=== PATIENT | male | born 1965 | race Caucasian/White ===

== ENCOUNTER 2022-02-19 19:11 | Emergency (ER) | payer SELFPAY ==
[~2022-02-19] VITALS: Ht 175.3 cm; Wt 64.9 kg
[2022-02-20] MEDS ORDERED: HYDROCODONE/APAP 5-325MG TABLET PO ONE (01:30)
[2022-02-20] MEDS ORDERED: TDAP DIPH,PERTUSS,TET VAC/PF 0.5 ML DISP.SYRIN IM ONE ×2 (01:30→01:51)
[2022-02-20] MEDS ORDERED: HYDROCODONE/APAP 5-325MG TABLET ONE (01:51)
[2022-02-20] MEDS ORDERED: LIDOCAINE HCL 1% 20 ML VIAL ONE (02:24)
--- NOTE | 2022-02-20 02:27 | NUR ---
Dr Sanon verbally ordered lidocaine 1%
[2022-02-20] MEDS ORDERED: LIDOCAINE 2% (GLYDO= UROJET) 10 ML JELLY MM ONE (02:30)
[2022-02-20] MEDS ORDERED: DOXY100C5 PO (03:12)
[2022-02-20] MEDS ORDERED: NAPR-1164 PO (03:12)
--- NOTE | 2022-02-20 03:24 | NUR ---
Patient discharged to home in stable condition. Written and verbal after care instructions given. Patient verbalizes understanding of instructions. Stressed follow up or return to ER for worsening s/s. Patient is a/ox4, NAD noted.
[2022-02-20 03:26] VITALS: BP 130/76
== END 2022-02-20 03:27 | disposition home or self-care (01) ==
LOC: ER 19:25
DX: S61.112A Laceration without foreign body of left thumb with damage to nail, initial encounter (principal); S51.832A Puncture wound without foreign body of left forearm, initial encounter; S51.831A Puncture wound without foreign body of right forearm, initial encounter; W54.0XXA Bitten by dog, initial encounter; Y92.89 Other specified places as the place of occurrence of the external cause
CPT/HCPCS: 11760; 99283; 90715; 90471; J3490; A4663